=== PATIENT | male | born 1935 | race Caucasian/White ===

== ENCOUNTER 2018-05-10 09:56 | Emergency (ER) | payer MEDICARE, BC ==
[2018-05-10 10:28] LABS: Bilirubin Negative (Negative); Blood, Urine Negative (Negative); Clarity CLEAR (Clear); Glucose, Urine (Dipstick) Negative (Negative); Leukocyte Negative (Negative); Nitrite Negative (Negative); Protein, Urine (Dipstick) Negative (Neg-Trace); Specific Gravity, Urine 1.024 (1.002-1.036)
[2018-05-10 10:42] LABS: #Eosinphils 0.2 thou/uL (0.0-0.7); #Lymphocytes 1.3 thou/uL (1.20-3.40); #Monocytes 0.6 thou/uL (0.11-0.59); #Neutrophils 5.3 thou/uL (1.40-6.50); %Basophils 0.4 % (0.0-1.0); %Eosinophils 2.8 % (0.0-10.0); %Lymphocytes 17.3 % (21.0-51.0); %Monocytes 8.3 % (0.0-10.0); %Neutrophils 71.2 % (42.0-75.0); Hemoglobin 13.1 g/dL (14.0-18.0); Mean Corpuscular HGB CONC 33.6 g/dL (32.0-36.0); Mean Corpuscular Hemoglobin 34.8 pg (27.0-31.0); Mean Platelet Volume 6.8 fL (7.4-10.4); Platelet Count 230 thou/uL (130-400); RBC Distribution Width 12.3 % (11.5-14.5); Red Blood Cell (RBC) Count 3.78 mill/uL (4.70-6.10); White Blood Cell (WBC) Count 7.5 thou/uL (4.8-10.8)
[2018-05-10] MEDS ORDERED: Morphine 4 MG/ML VIAL ONE (10:56)
[2018-05-10] MEDS ORDERED: Ondansetron ODT 8 MG TAB ONE (10:57)
[2018-05-10] MEDS ORDERED: Ondansetron PF 4 MG/2 ML Vial ONE (10:57)
[2018-05-10 11:07] LABS: ALT (SGPT) 11 U/L (8-55); AST (SGOT) 17 U/L (5-34); Albumin 4.1 g/dL (3.4-4.8); Alkaline Phosphatase 75 U/L (40-150); Anion Gap 12 mmol/L (10-20); BUN (Urea Nitrogen) 31 mg/dL (8.4-25.7); Bilirubin, Total 1.2 mg/dL (0.2-1.2); Calc. Creatinine Clearance 0 mL/min (70-130); Calcium 9.6 mg/dL (7.8-10.44); Carbon Dioxide 25 mmol/L (23-31); Chloride 105 mmol/L (98-107); Estimated GFR-MDRD 55; Globulin 2.3 g/dL (2.4-3.5); Glucose 136 mg/dL (83-110); Lipase 12 U/L (8-78); Potassium 4.2 mmol/L (3.5-5.1); Protein, Total 6.4 g/dL (5.8-8.1); Sodium 138 mmol/L (136-145)
--- NOTE | 2018-05-10 12:36 | CT ---
CT ABDOMEN WITH CONTRAST: CT PELVIS WITH CONTRAST: HISTORY: Right lower quadrant pain. COMPARISON: None. FINDINGS: ABDOMEN: Dependent atelectatic changes. Heart size is normal. No significant pericardial fluid. T here are coronary calcifications. The descending thoracic aorta and abdominal aorta have an overall normal caliber. No periaortic fat stranding. A 2 x 2.2 cm hypodensity in the liver, with an attenuation coefficient of 18 Hounsfield units, may re present a complex cyst. There are no enhancing lesions in the liver. The spleen, pancreas, and adre nal glands have appropriate attenuation and enhancement. No gastrohepatic, retrocrural, or periportal lymphadenopathy. No mesenteric mass, lymphadenopathy, free air, or free fluid. Symmetric enhancement of the kidneys. Fullness in both renal pelves may represent bilateral parapelv ic cysts; however, there does appear to be a calculus in the proximal right ureter, measuring 5 mm. A component of mild right-sided obstructive uropathy cannot be entirely excluded. Better interrogati on with CT urogram can be performed. Correlate clinically for renal colic. Limited evaluation of the alimentary canal with lack of oral contrast. No evidence of bowel obstruct ion. The ileocecal junction is normal. Scattered fecal material in a nondistended, nondilated colon . Extensive diverticulosis without evidence of diverticulitis. Normal caliber air-filled appendix i s noted. PELVIS: No mass, lymphadenopathy, free air, or free fluid. Unremarkable urinary bladder. There is dextroscoliosis of the lumbar spine. 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 IMPRESSION: 1. Normal caliber appendix. 2. Extensive diverticulosis without evidence of diverticulitis. 3. Bilateral renal pelvic hypodensities, which may represent parapelvic cysts. There does appear to be a component of mild right-sided obstructive uropathy secondary to the 5 mm calculus in the proxim al right ureter. Correlate for right sided renal colic. Correlation made with a lumbar spine MRI [facility] 11/01/2011 does demonstrate bilateral parapelvic cysts. POS: [facility]
== END 2018-05-10 12:29 | disposition home or self-care (01) ==
LOC: ERS 09:56
DX: N20.1 Calculus of ureter (principal); I48.91 Unspecified atrial fibrillation; Z79.891 Long term (current) use of opiate analgesic
CPT/HCPCS: 36415; 74177; 80053; 81003; 83690; 85025; 93005; 96374; 96375; J2270; J2405

== ENCOUNTER 2019-03-26 13:10 | Outpatient (CLI) | payer MEDICARE, BC ==
--- NOTE | 2019-03-26 14:44 | MRI ---
MRI Lumbar Spine Noncontrast: HISTORY: Lumbar radiculopathy. History of prior surgery. COMPARISON: MRI lumbar spine on 11/01/[address] abdomen on 05/10/2018 FINDINGS: Increased T2-weighted signal intensity structures are seen in each renal hilum which were also seen o n prior CT exam and are likely reflective of bilateral parapelvic renal cysts. There is a mildly prominent right retrocrural lymph node measuring 9 mm in short axis dimension. Conus medullaris is normal in morphology and terminates at the L1-2 level. Multilevel degenerative changes are seen throughout the lumbar spine with right convex scoliosis of t he lumbar spine. Vacuum phenomenon is seen within the intervertebral discs at all levels, and there is severe height loss involving the intervertebral discs at all levels. T10-11: There is a broad-based disc osteophyte complex present with a right paracentral disc protrusi on. This does narrow the ventral subarachnoid space with encroachment on the right anterolateral aspect of the spinal cord. Facet hypertrophic changes are noted at this level. Axial imaging was not obtained at this level, but there is suggestion of severe bilateral neural foraminal narrowing. T11-12: There is a minimal disc osteophyte complex with slight effacement of ventral subarachnoid spa ce. Neural foramina are patent. T12-L1: There is a broad-based disc osteophyte complex which narrows the ventral subarachnoid space a nd encroaches on the anterior aspect of the spinal cord. Mild right-sided neural foraminal narrowing is present. The left neural foramen is patent. L1-2: There is slight retrolisthesis of L1 on L2. Broad-based disc osteophyte complex is present at t his level. Facet hypertrophic changes are noted. Mild central canal narrowing is present. Right neural foramen is patent, but there is mild to moderate left-sided neural foraminal narrowing. L2-3: Severe loss of intervertebral disc height. Broad-based disc osteophyte complex is present with facet hypertrophic changes noted. Facet hypertrophic changes are greater on the left. Right neural foramen is patent, but there is severe left-sided neural foraminal narrowing. There is mass effect on the left lateral aspect of the thecal sac due to facet hypertrophic changes and scoliotic curvature. Mild generalized narrowing central spinal canal is present L3-4: There is severe loss of intervertebral disc height. There is broad-based disc osteophyte comple x and facet hypertrophic changes. Right neural foramen is patent, but there is suggestion of moderate left-sided neural foraminal narrowing. L4-5: There is a broad-based disc osteophyte complex and facet hypertrophic changes. Facet degenerati ve changes are seen at this level. Moderate right and severe left-sided neural foraminal narrowing is present. L5-S1: There is a broad-based disc osteophyte complex and facet hypertrophic changes. The left neural foramen is patent. There is what appears to be dilated nerve root sleeve in the right subarticular zone extending into the right neural foramen. There is severe right-sided neural foraminal narrowing primarily related to disc osteophyte complex and facet hypertrophic changes. Mild mass effect is present on the right lateral aspect of the thecal sac. IMPRESSION: Multilevel degenerative changes throughout the lumbar spine, and the degenerative changes have progre ssed compared to the prior exam. Prominent right convex scoliosis lumbar spine is noted.
== END 2019-03-26 13:11 | disposition home or self-care (01) ==
LOC: TBSIIMAG 13:10
PROVIDERS: ATTEND Anesthesiology Pain Medicine
DX: M47.26 Other spondylosis with radiculopathy, lumbar region (principal); M41.9 Scoliosis, unspecified
CPT/HCPCS: 72148

== ENCOUNTER 2019-04-03 13:42 | Outpatient (CLI) | payer MEDICARE, BC ==
--- NOTE | 2019-04-03 14:43 | RAD ---
EXAM: LUMBAR SPINE THREE VIEWS: 04/03/19 HISTORY: Low back pain, right leg pain. COMPARISON: Lumbar spine MRI, 03/26/19. FINDINGS: Prominent dextroscoliosis. Severe multilevel disc osteophytosis and facet arthrosis, evidence for spo ndylosis. Very mild stable anterolisthesis of L5 on S1 without abnormal translation between flexion a nd extension. Severe bone demineralization. IMPRESSION: Severe bone demineralization with dextroscoliosis and very mild grade I stable anterolisthesis of L5 on S1. POS: [facility]
== END 2019-04-03 13:43 | disposition home or self-care (01) ==
LOC: TBSIIMAG 13:42
PROVIDERS: ATTEND Neurological Surgery
DX: M54.16 Radiculopathy, lumbar region (principal); M41.9 Scoliosis, unspecified; M43.17 Spondylolisthesis, lumbosacral region; M81.0 Age-related osteoporosis without current pathological fracture
CPT/HCPCS: 72100

== ENCOUNTER 2019-12-17 06:56 | Outpatient (CLI) | payer MEDICARE, BC ==
[2019-12-17 13:43] LABS: Hemoglobin 12.2 g/dL (14.0-18.0); Mean Corpuscular HGB CONC 32.7 G/DL (32.0-36.0); Mean Corpuscular Hemoglobin 33.5 PG (27.0-33.0); Mean Corpuscular Volume 102.5 fl (80.0-100.0); Mean Platelet Volume 10.1 fl (7.4-10.4); Platelet Count 224 10x3/uL (130-400); RBC Distribution Width 13.5 % (11.5-14.5); Red Blood Cell (RBC) Count 3.64 10x6/uL (4.40-5.80); White Blood Cell (WBC) Count 7.3 10x3/uL (4.5-11.0)
[2019-12-17 13:49] LABS: Anion Gap 15 mmol/L (10-20); BUN (Urea Nitrogen) 29 mg/dL (8.4-25.7); Calc. Creatinine Clearance 0 mL/min (70-130); Calcium 9.6 mg/dL (7.8-10.44); Carbon Dioxide 25 mmol/L (23-31); Chloride 105 mmol/L (98-107); Estimated GFR-MDRD 65; Glucose 85 mg/dL (83-110); Potassium 5.2 mmol/L (3.5-5.1); Sodium 140 mmol/L (136-145)
[2019-12-17 14:15] LABS: PTT 31.3 sec (22.0-33.0); Prothrombin Time 10.9 sec (9.5-12.1)
[2019-12-18 12:08] LABS: SARS-CoV-2 MS2 Positive; SARS-CoV-2 N Gene Negative; SARS-CoV-2 S Gene Negative; SARS-CoV-2 by NAA Not Detected (NotDetected); SARS-CoV-2 orf1ab Negative
== END 2019-12-17 06:57 | disposition home or self-care (01) ==
LOC: LABBT 06:56
PROVIDERS: ATTEND Neurological Surgery
DX: Z01.812 Encounter for preprocedural laboratory examination (principal); M48.061 Spinal stenosis, lumbar region without neurogenic claudication; Z20.828 Contact with and (suspected) exposure to other viral communicable diseases
CPT/HCPCS: 80048; 85027; 85610; 85730; U0003; 87635

== ENCOUNTER 2019-12-17 12:30 | Inpatient (IN) | payer MEDICARE, BC ==
--- NOTE | 2019-12-19 13:38 | HP ---
REASON FOR HISTORY AND PHYSICAL: Surgery on 12/21/2019. Case #[id number]. HISTORY OF PRESENT ILLNESS: Mr. Stark is an 84-year-old gentleman with a chief complaint of lower back, right leg pain and weakness. He has a right L5 radiculopathy with foot drop. He has tried spinal epidural injections, physical therapy, dry needling, and medications without any lasting relief. He denies bladder or bowel dysfunction. REVIEW OF SYSTEMS: CONSTITUTIONAL: Denies fever or chills. ENT: Denies change in vision or hearing. CARDIAC: Denies chest pain, shortness of breath, or diaphoresis. PULMONARY: Denies shortness of breath, cough, or hemoptysis. GI: Denies abdominal pain, nausea, vomiting, diarrhea, change in stool formation and consistency. : Denies trouble with urination, frequency of urination, or bloody urine. SKIN: Denies skin rash, bruising, bleeding, or skin masses. MUSCULOSKELETAL: As per history of present illness. NEUROLOGIC: As per history of present illness. PSYCHOLOGIC: Denies anxiety, depression, or behavior changes. MEDICAL HISTORY: Arthritis, colonoscopy 2011, eye exam 2013, wellness exam 2011, flu vaccination 2012, serious accidents, cataracts, torn rotator cuff, kidney stones. PAST SURGICAL HISTORY: Knee, back surgery 2011, colonoscopy 2011, cervical, right cataract surgery 2018. HOSPITALIZATIONS: As above surgeries. FAMILY HISTORY: Father , 67 years old, coronary artery disease, high blood pressure, heart disease, heart attack, diagnosed with hypertension. Mother , 78 years old, coronary artery disease, high blood pressure, heart disease, heart attack, hypertension. Siblings, coronary artery disease, high blood pressure, heart disease, heart attack. SOCIAL HISTORY: Nonsmoker. Denies illicit drugs. Occasionally, he drinks alcohol. MEDICATIONS: 1. Astelin 137 mcg spray. 2. Gabapentin 300 mg. 3. Ibuprofen 200 mg. 4. Tizanidine 4 mg. 5. Latanoprost 0.005% solution ophthalmic. 6. Timolol 0.5% ophthalmic solution. 7. Prednisone 10 mg. ALLERGIES: SULFA, PENICILLIN, TAPE, ADHESIVE. PHYSICAL EXAMINATION: VITAL SIGNS: Weight 158 pounds, height 63 inches, BMI 28.09. HEENT: Pupils are equal. Extraocular movements are intact. NECK: Soft, supple. No masses are noted. Range of motion is intact and nonpainful. NEUROLOGIC: Awake, alert, and oriented x3. Attention, fund of knowledge normal. Cranial nerves are grossly intact. Gait and station: Right footdrop. Unable to walk on his right heel. Motor exam: Weakness in the anterior tib and EHL on the right. Sensory exam: Decreased L5 sensation on the right. Reflex exam: Hypoactive, symmetric. No clonus. IMAGING: MRI of the L-spine: Collapse of the right L5-S1 disk, the pedicle of the L5 sits on the L5 nerve root on top of the sacrum. Small cystic area noted near the same nerve root. L-spine x-ray: Flexion, extension stable. ASSESSMENT: 1. Lumbar radiculopathy. 2. Foraminal stenosis of the lumbar region. PLAN: 1. Laminectomy and TLIF at L5-S1. 2. Preop labs; CBC, PT, PTT, INR. 3. Clearance. INFORMED CONSENT: We discussed the indications, risks, benefits, alternatives, and expected results from surgery. The risks discussed included, but were not limited to, bleeding, infection, CSF leak, nerve damage, weakness, incontinence, cauda equina injury, arachnoiditis, paralysis, ventilator dependency, wheelchair dependency, loss of vision, hardware misplacement, cardiopulmonary complications of anesthesia or . Long-term complications discussed included, but were not limited to degeneration of surrounding disk and further surgery. He understands the risks and is willing to proceed. Job ID: [id number]
[2019-12-20 13:06] VITALS: BMI 24.2
[2019-12-21] MEDS ORDERED: Clindamycin/D5W 900 mg/50 ml Premix Bag ONE (06:07)
[2019-12-21] MEDS ORDERED: Levofloxacin 500 mg/D5W 100 ml Premix Bag ONE (06:08)
[2019-12-21] MEDS ORDERED: EPINEPHrine 1 MG/ML AMP ONE (06:13)
[2019-12-21] MEDS ORDERED: Thrombin 5000 UNITS/5 ML VIAL ONE (06:13)
[2019-12-21] MEDS ORDERED: Bupivacaine PF 0.5% 30 ML VIAL ONE (06:13)
[2019-12-21] MEDS ORDERED: Fentanyl 250 MCG/5 ML VIAL ONE (06:22)
[2019-12-21] MEDS ORDERED: PHENYLEPHRINE-NS 100 MCG/ML 10 ML SYRINGE ONE (08:13)
[2019-12-21] MEDS ORDERED: Phenylephrine 10 MG/ML VIAL ONE (08:14)
[2019-12-21] MEDS ORDERED: Rocuronium Bromide 10 MG/ML (10ML VIAL) ONE (10:15)
[2019-12-21] MEDS ORDERED: Dexamethasone 20 MG/5 ML VIAL ONE (10:15)
[2019-12-21] MEDS ORDERED: PROPOFOL 200 MG/20 ML VIAL ONE (10:15)
[2019-12-21] MEDS ORDERED: Metoclopramide HCl 10 MG/2 ML VIAL ONE (10:15)
[2019-12-21] MEDS ORDERED: EPHEDRINE 25 MG/5 ML SYRINGE ONE (10:15)
[2019-12-21] MEDS ORDERED: Lidocaine 1% PF 5 ML VIAL ONE (10:15)
[2019-12-21] MEDS ORDERED: Glycopyrrolate 0.2 MG/ML 5 ML SYRINGE ONE (10:15)
[2019-12-21] MEDS ORDERED: Ondansetron PF 4 MG/2 ML Vial ONE (10:15)
[2019-12-21] MEDS ORDERED: Promethazine HCl 25 MG/ML VIAL SLOW IVP PRN (12:16)
[2019-12-21] MEDS ORDERED: Promethazine HCl 25 MG/ML VIAL IM PRN ×2 (12:16→12:41)
[2019-12-21] MEDS ORDERED: Ondansetron HCl/PF 4 MG/2 ML Vial IVP PRN (12:16)
[2019-12-21] MEDS ORDERED: HYDROmorphone 2 MG/ML VIAL SLOW IVP PRN (12:16)
[2019-12-21] MEDS ORDERED: Morphine 2 MG/ML VIAL SLOW IVP PRN (12:41)
[2019-12-21] MEDS ORDERED: Tamsulosin HCl 0.4 MG CAP PO PRN (12:41)
[2019-12-21] MEDS ORDERED: Acetaminophen/Codeine 30-300mg Tablet PO PRN (12:41)
[2019-12-21] MEDS ORDERED: Milk Of Magnesia 30 ML UDCUP PO PRN (12:41)
[2019-12-21] MEDS ORDERED: Acetaminophen 325 MG TAB PO PRN (12:41)
[2019-12-21] MEDS ORDERED: diphenhydrAMINE 50 MG/ML VIAL IVP PRN (12:41)
[2019-12-21] MEDS ORDERED: Promethazine 25 MG TAB PO PRN (12:41)
[2019-12-21] MEDS ORDERED: traMADol HCl 50 MG TAB PO PRN (12:41)
[2019-12-21] MEDS ORDERED: Scopolamine 1.5 mg/72 hour Patch TD PRN (12:41)
[2019-12-21] MEDS ORDERED: Mag-Al 1200 mg/1200 mg/30 ML UDCUP PO PRN (12:41)
[2019-12-21] MEDS ORDERED: tiZANidine HCl 4 MG TAB PO PRN ×2 (12:41→12:44)
[2019-12-21] MEDS ORDERED: Fentanyl 100 MCG/2 ML VIAL ONE ×2 (13:09→13:23)
[2019-12-21] MEDS ORDERED: Tamsulosin HCl 0.4 MG CAP ONE (13:23)
--- NOTE | 2019-12-21 13:51 | OP ---
DATE OF PROCEDURE: 12/21/2019 PARATRANSIT OPERATOR: Vikas Peace PA-C PREOPERATIVE INDICATION: Treat pain and prevent neurological deterioration. 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 PROCEDURES PERFORMED: 1. Decompressive laminectomy with foraminotomy, right L5-S1. 2. Microsurgical resection of intraspinal lesion (synovial cyst), extradural, nonneoplastic. 3. Transforaminal lumbar interbody arthrodesis, L5-S1. 4. Placement of intervertebral biomechanical device L5-S1. 5. Pedicle screw and christel instrumentation, L5-S1. 6. Local morselized allograft. PREOPERATIVE MEDICATIONS: Levaquin 500 mg IV, clindamycin 900 mg IV. DRAIN: Zero. DRAIN TYPE: None. DESCRIPTION OF PROCEDURE: The patient was brought to the operating room. General endotracheal anesthesia was induced. The patient was carefully positioned on the James frame with the appropriate padding for the chest and hips. Due to shoulder pathology, the arms could not be raised and they were taped to the patient's side. Lateral fluoro radiograph was used to plan our incision. This incorporated his previous L4-L5 incision and extended superiorly and inferiorly. The lumbar skin was sterilely prepped and draped. We opened a midline incision with a 10-blade knife and controlled bleeding with bipolar and monopolar cautery. We used monopolar cautery to dissect through subcutaneous tissues to the thoracodorsal fascia. We incised the fascia in the midline and reflected paraspinal muscles off the spinous process and lamina of L5 and S1. Lateral fluoro radiograph confirmed the levels upon which we were operating. We then used an Adson rongeur to remove the spinous process of L5 and the superior portion of the sacrum. Kerrison rongeurs were used to fashion a laminectomy. As we encountered the large cystic structure in the right side of the epidural space, brought the operative microscope in the field. Under microscopic magnification using microsurgical techniques, we carefully dissected our way around this cystic structure. We removed in a piecemeal fashion and there was a typical synovial cyst with some remnants of the injection material. Once the cyst was removed, the L5 nerve root was more visible. We followed it into the foramina, found it compressed between the L5 pedicle and the S1 pedicle and outside the spinal canal. This made placement of the interbody device necessary to create vertical space around the nerve root. Our foraminotomy was wide enough to access the interspace under the axilla of the L5 nerve root. We incised the interspace and removed disk contents using curettes and rongeurs. A rectangular-shaped bone rasp was used to measure the height of the interspace to 10 mm. A 10 mm PEEK intervertebral graft was brought into the field. Laminectomy bone was cleaned of soft tissue attachments, morcellized and added to demineralized bone matrix as our fusion substrate. The substrate was packed in the center of the graft. The graft was advanced into the interspace under radiographic guidance to the appropriate depth. This created significant amount of vertical space around the L5 nerve root on the right side. We turned our attention to pedicle screw instrumentation. Using bony anatomic landmarks, palpation of the medial portion of the pedicles, and a lateral fluoro radiograph as our guide, we chose entry points for pedicle screws at L5 and S1 bilaterally. We drilled out our entry points, used a bone awl to create our trajectory and then used a threaded tap to tap each of the trajectories. These were completely encased in bone. 6.5 mm diameter screws were placed in the pedicles at L5 and S1 bilaterally. We irrigated with bacitracin irrigation. We decorticated the transverse process of L5 and the sacral ala on both sides. We generated a 360-degree image set with isocentric C-arm confirming adequate positioning of our instrumentation. We then brought rods into the field. Rods were placed into the screw heads and caps tightened over the rods. Using a torque/counter-torque mechanism, we ensured adequate tightness. We used gentle compression across the interspace to keep the interbody graft in place before final tightening of our caps. With a Fermin ball probe, we made sure that both the left and the right L5 foramen was still open. Over the decorticated transverse processes and sacral ala, we left demineralized bone matrix and morselized autograft as our posterior lateral fusion substrate. This was done after copious amounts of vancomycin irrigation. Vancomycin powder was used to treat the wound. We closed the wound in anatomical layers. We applied a sterile dressing. This was a clean case, no contamination. Job ID: [id number]
[2019-12-21] MEDS: Clindamycin/D5W 900 MG in Premix Bag 1 BAG IVPB SCH ×2 (14:34→21:17)
[2019-12-21] MEDS: Gabapentin 300 MG CAP PO SCH ×2 (14:34→20:27)
[2019-12-21] MEDS: Sodium Chloride 0.9% 1,000 ML IV SCH (18:12)
[2019-12-21] MEDS ORDERED: Latanoprost 0.005% Ophth Soln 2.5 ml Bottle EA EYE SCH (21:00)
[2019-12-21] MEDS ORDERED: Loratadine 10 MG TAB PO SCH (21:00)
[2019-12-21] MEDS ORDERED: Timolol 0.25% Ophth Soln 5 ml Bottle EA EYE SCH (21:00)
[2019-12-22] MEDS: Sodium Chloride 0.9% 1,000 ML IV SCH (04:00)
[2019-12-22] MEDS: Gabapentin 300 MG CAP PO SCH (08:26)
[2019-12-22] MEDS ORDERED: FLU VACC QS2020-21(65YR UP)/PF 240 MCG/0.7 ML SYRINGE IM ONE (09:00)
[2019-12-22] MEDS ORDERED: Non-Formulary Item 1 EACH (Esomeprazole Magnesium [Nexium] 20 MG Capsule.Dr) PO SCH (09:00)
[2019-12-22 11:20] VITALS: BP 134/70; TEMP 98.9
--- NOTE | 2019-12-24 07:22 | DIS ---
DATE OF ADMISSION: 12/21/2019 DATE OF DISCHARGE: 12/22/2019 DISCHARGE DIAGNOSES: Lumbar stenosis, lumbar radiculopathy. PROCEDURE: Decompressive laminectomy with foraminotomy, right L5-S1, synovial cyst resection and a L5-S1 TLIF. DISCHARGE SUMMARY: The patient is an 84-year-old male recently evaluated in the office by Dr. Erazo for progressive back and right leg pain. He was found to have significant stenosis around the exiting right L5 nerve root due to collapse of the foramina and synovial cyst formation. He underwent laminectomy and foraminotomy with TLIF at L5-S1 on 12/21/2019. Following the surgery, he was transitioned to the Med/Surg floor, where his pain has been well controlled with p.o. medications. He is tolerating regular diet, and he is voiding appropriately. He walked in the department with Physical Therapy. We will plan to dismiss the patient to home. I have discussed home care precautions and will follow up with the patient in [address] Erazo. Job ID: [id number]
== END 2019-12-22 11:56 | disposition home or self-care (01) | DRG 455 ==
LOC: SURG A 12-21 05:47
PROVIDERS: ADMIT Neurological Surgery; ATTEND Neurological Surgery
PROC: 0SG30AJ Fusion of Lumbosacral Joint with Interbody Fusion Device, Posterior Approach, Anterior Column, Open Approach (ICD-10-PCS; principal; 2019-12-21)
PROC: 0SG3071 Fusion of Lumbosacral Joint with Autologous Tissue Substitute, Posterior Approach, Posterior Column, Open Approach (ICD-10-PCS; 2019-12-21)
PROC: 0SB20ZZ Excision of Lumbar Vertebral Disc, Open Approach (ICD-10-PCS; 2019-12-21)
PROC: 01NB0ZZ Release Lumbar Nerve, Open Approach (ICD-10-PCS; 2019-12-21)
PROC: 01NR0ZZ Release Sacral Nerve, Open Approach (ICD-10-PCS; 2019-12-21)
PROC: 3E02340 Introduction of Influenza Vaccine into Muscle, Percutaneous Approach (ICD-10-PCS; 2019-12-22)
DX: M48.061 Spinal stenosis, lumbar region without neurogenic claudication (principal); M54.16 Radiculopathy, lumbar region; M19.90 Unspecified osteoarthritis, unspecified site; I10 Essential (primary) hypertension; I48.0 Paroxysmal atrial fibrillation; I87.2 Venous insufficiency (chronic) (peripheral); M71.38 Other bursal cyst, other site; Z79.899 Other long term (current) drug therapy; Z79.52 Long term (current) use of systemic steroids; Z88.0 Allergy status to penicillin; Z88.2 Allergy status to sulfonamides; Z91.048 Other nonmedicinal substance allergy status; Z98.41 Cataract extraction status, right eye; Z79.01 Long term (current) use of anticoagulants; Z23 Encounter for immunization
CPT/HCPCS: 76000; 90471; 90662; C1713; C1768; G0008; J0171; J1100; J1956; J2370; J2405; J2704; J2765; J3010; J3370; J3490; S0020

== ENCOUNTER 2020-02-22 12:56 | Outpatient (CLI) | payer MEDICARE, BC ==
--- NOTE | 2020-02-22 13:57 | RAD ---
LUMBAR SPINE 2 VIEWS: HISTORY: Lumbar radiculopathy. FINDINGS: Severe scoliotic deformity of the thoracolumbar vertebral column. Status post laminectomy with poste rior fusion changes at L5-S1. Bone demineralization. Extensive disk-osteophytosis and facet arthros is. IMPRESSION: Severe scoliosis. Postoperative laminectomy with posterior fusion and pedicle screw placement and in tradiskal prosthesis at L5-S1. POS: [facility]
== END 2020-02-22 12:57 | disposition home or self-care (01) ==
LOC: TBSIIMAG 12:56
PROVIDERS: ATTEND Physician Assistant Medical
DX: M48.061 Spinal stenosis, lumbar region without neurogenic claudication (principal); M54.16 Radiculopathy, lumbar region; M41.9 Scoliosis, unspecified; Z98.1 Arthrodesis status; Z98.890 Other specified postprocedural states
CPT/HCPCS: 72100

== ENCOUNTER 2020-10-14 | Emergency (ER) | payer MEDICARE, BC | END 2020-10-14 15:11 | disposition home or self-care (01) ==

== ENCOUNTER 2022-03-18 12:36 | Outpatient (CLI) | payer MEDICARE, BC | END 2022-03-18 12:37 | disposition home or self-care (01) | LOC: CT 12:36 | PROVIDERS: ATTEND Family Medicine | DX: I48.91 Unspecified atrial fibrillation (principal); R53.1 Weakness; Z79.899 Other long term (current) drug therapy | CPT/HCPCS: 36415; 70450; 80053; 82306; 83735; 85025 ==

== ENCOUNTER 2022-10-08 13:58 | Inpatient (IN) | payer MEDICARE, BC ==
[2022-10-08 14:39] LABS: #Eosinphils 0.2 thou/uL (0.0-0.7); #Monocytes 0.9 thou/uL (0.11-0.59); #Neutrophils 6.4 thou/uL (1.40-6.50); %Basophils 0.2 % (0.0-1.0); %Eosinophils 1.7 % (0.0-10.0); %Lymphocytes 15.3 % (21.0-51.0); %Neutrophils 72.1 % (42.0-75.0); Hematocrit 38.1 % (42.0-52.0); Hemoglobin 12.6 g/dL (14.0-18.0); Mean Corpuscular HGB CONC 33.1 g/dL (32.0-36.0); Mean Corpuscular Hemoglobin 34.8 pg (27.0-31.0); Mean Corpuscular Volume 105.2 fl (78.0-98.0); Mean Platelet Volume 9.8 fL (7.4-10.4); Platelet Count 187 10x3/uL (130-400); Red Blood Cell (RBC) Count 3.62 mill/uL (4.70-6.10); White Blood Cell (WBC) Count 8.8 10x3/uL (4.8-10.8)
[2022-10-08 15:06] LABS: ALT (SGPT) 13 U/L (8-55); AST (SGOT) 15 U/L (5-34); Albumin 3.9 g/dL (3.4-4.8); Alkaline Phosphatase 58 U/L (40-110); Anion Gap 11 mmol/L (10-20); BUN (Urea Nitrogen) 30 mg/dL (8.4-25.7); Bilirubin, Total 1.4 mg/dL (0.2-1.2); Calc. Creatinine Clearance 0 mL/min (70-130); Calcium 9.5 mg/dL (7.8-10.44); Carbon Dioxide 25 mmol/L (23-31); Chloride 107 mmol/L (98-107); Estimated GFR 60; Globulin 2.5 g/dL (2.4-3.5); Glucose 122 mg/dL (83-110); Potassium 4.3 mmol/L (3.5-5.1); Protein, Total 6.4 g/dL (5.8-8.1); Sodium 139 mmol/L (136-145)
[2022-10-08 16:02] LABS: INR-International Normal Ratio 1.3; PTT 35.7 sec (22.9-36.1); Prothrombin Time 16.8 sec (12.0-14.7)
[2022-10-08] MEDS ORDERED: dilTIAZem 25 MG/5 ML VIAL ONE (16:20)
[2022-10-08] MEDS ORDERED: hydrALAZINE 20 MG/ML VIAL SLOW IVP PRN (18:01)
[2022-10-08] MEDS ORDERED: Ondansetron PF 4 MG/2 ML Vial IVP PRN (18:01)
[2022-10-08] MEDS ORDERED: Ipratropium/Albuterol 3 ML NEB NEB PRN (18:01)
[2022-10-08] MEDS ORDERED: Morphine 2 MG/ML VIAL SLOW IVP PRN (18:01)
[2022-10-08] MEDS ORDERED: Acetaminophen 500 MG TAB PO SCH (18:15)
[2022-10-08] MEDS ORDERED: Acetaminophen 500 MG TAB ONE (18:23)
[2022-10-08] MEDS: Sodium Chloride 0.9% 1,000 ML IV SCH (18:34)
[2022-10-08 18:48] VITALS: BMI 24.8
[2022-10-08] MEDS ORDERED: traMADol HCl 50 MG TAB PO PRN (19:34)
[2022-10-08] MEDS ORDERED: Cyclobenzaprine 10 MG TAB PO PRN (19:35)
[2022-10-08] MEDS ORDERED: Amiodarone 150 MG, Admixture Fee 1 EACH in Dextrose 5% in Water 100 ML IVPB SCH ×2 (19:45→20:45)
[2022-10-08] MEDS ORDERED: Digoxin 0.5 MG/2 ML AMP SLOW IVP SCH (19:45)
[2022-10-08] MEDS ORDERED: Amiodarone 450 MG in Dextrose 5% in Water 250 ML IVPB SCH ×2 (19:45)
[2022-10-09] MEDS: Acetaminophen 500 MG TAB PO SCH ×5 (00:13→23:46)
[2022-10-09] MEDS: traMADol HCl 50 MG TAB PO SCH ×5 (00:13→23:46)
[2022-10-09] MEDS: Famotidine 20 MG TAB PO SCH ×4 (00:13→21:14)
[2022-10-09] MEDS: Sodium Chloride 0.9% 1,000 ML IV SCH (02:50)
[2022-10-09 03:57] LABS: #Eosinphils 0.2 thou/uL (0.0-0.7); %Basophils 0.6 % (0.0-1.0); %Eosinophils 3.2 % (0.0-10.0); %Lymphocytes 23.3 % (21.0-51.0); %Neutrophils 57.5 % (42.0-75.0); Hematocrit 30.3 % (42.0-52.0); Hemoglobin 10.1 g/dL (14.0-18.0); Mean Corpuscular HGB CONC 33.3 g/dL (32.0-36.0); Mean Corpuscular Hemoglobin 34.9 pg (27.0-31.0); Mean Corpuscular Volume 104.8 fl (78.0-98.0); Mean Platelet Volume 9.6 fL (7.4-10.4); Platelet Count 136 10x3/uL (130-400); RBC Distribution Width 13.9 % (11.5-14.5); Red Blood Cell (RBC) Count 2.89 mill/uL (4.70-6.10); White Blood Cell (WBC) Count 6.9 10x3/uL (4.8-10.8)
[2022-10-09 04:10] LABS: INR-International Normal Ratio 1.4; PTT 42.2 sec (22.9-36.1); Prothrombin Time 17.6 sec (12.0-14.7)
[2022-10-09 04:20] LABS: Anion Gap 10 mmol/L (10-20); BUN (Urea Nitrogen) 27 mg/dL (8.4-25.7); Calc. Creatinine Clearance 58 mL/min (70-130); Calcium 8.4 mg/dL (7.8-10.44); Carbon Dioxide 22 mmol/L (23-31); Chloride 110 mmol/L (98-107); Estimated GFR 85; Glucose 106 mg/dL (83-110); Potassium 3.9 mmol/L (3.5-5.1); Sodium 138 mmol/L (136-145)
[2022-10-09 08:28] LABS: Magnesium 1.5 mg/dL (1.6-2.6); Phosphorus 3.3 mg/dL (2.3-4.7)
[2022-10-09] MEDS ORDERED: Magnesium 2 GM/50 ML(in water) 4 GM in Premix Bag 1 BAG IVPB SCH (08:45)
[2022-10-09] MEDS ORDERED: Gabapentin 300 MG CAP PO SCH (21:00)
[2022-10-09] MEDS: Gabapentin 300 MG CAP PO SCH (23:25)
[2022-10-10 04:51] LABS: #Eosinphils 0.2 thou/uL (0.0-0.7); %Basophils 0.5 % (0.0-1.0); %Eosinophils 2.8 % (0.0-10.0); %Lymphocytes 20.1 % (21.0-51.0); %Neutrophils 61.3 % (42.0-75.0); Hemoglobin 10.1 g/dL (14.0-18.0); Mean Corpuscular HGB CONC 32.6 g/dL (32.0-36.0); Mean Corpuscular Hemoglobin 34.1 pg (27.0-31.0); Mean Corpuscular Volume 104.7 fl (78.0-98.0); Mean Platelet Volume 10.1 fL (7.4-10.4); Platelet Count 139 10x3/uL (130-400); RBC Distribution Width 13.9 % (11.5-14.5); Red Blood Cell (RBC) Count 2.96 mill/uL (4.70-6.10); White Blood Cell (WBC) Count 6.5 10x3/uL (4.8-10.8)
[2022-10-10] MEDS: Acetaminophen 500 MG TAB PO SCH ×4 (05:07→23:03)
[2022-10-10] MEDS: traMADol HCl 50 MG TAB PO SCH ×4 (05:08→23:03)
[2022-10-10 05:15] LABS: Anion Gap 9 mmol/L (10-20); BUN (Urea Nitrogen) 18 mg/dL (8.4-25.7); Calc. Creatinine Clearance 61 mL/min (70-130); Calcium 9.2 mg/dL (7.8-10.44); Carbon Dioxide 24 mmol/L (23-31); Chloride 107 mmol/L (98-107); Estimated GFR 86; Glucose 93 mg/dL (83-110); Magnesium 1.8 mg/dL (1.6-2.6); Phosphorus 2.8 mg/dL (2.3-4.7); Sodium 136 mmol/L (136-145)
[2022-10-10] MEDS: Famotidine 20 MG TAB PO SCH ×2 (09:01→20:15)
[2022-10-10] MEDS ORDERED: Metoprolol Tartrate 25 MG TAB PO SCH (11:30)
[2022-10-10] MEDS: Gabapentin 300 MG CAP PO SCH ×2 (20:14→23:04)
[2022-10-10] MEDS: Metoprolol Tartrate 25 MG TAB PO SCH (20:15)
[2022-10-10] MEDS: Apixaban 2.5 MG TAB PO SCH (20:15)
[2022-10-10] MEDS ORDERED: Apixaban 5 MG TAB PO SCH (21:00)
[2022-10-11 04:31] LABS: #Eosinphils 0.1 thou/uL (0.0-0.7); #Monocytes 0.9 thou/uL (0.11-0.59); #Neutrophils 3.6 thou/uL (1.40-6.50); %Basophils 0.5 % (0.0-1.0); %Eosinophils 1.7 % (0.0-10.0); %Lymphocytes 21.5 % (21.0-51.0); %Monocytes 15.6 % (0.0-10.0); %Neutrophils 60.5 % (42.0-75.0); Hematocrit 26.5 % (42.0-52.0); Hemoglobin 8.7 g/dL (14.0-18.0); Mean Corpuscular HGB CONC 32.8 g/dL (32.0-36.0); Mean Corpuscular Hemoglobin 34.9 pg (27.0-31.0); Mean Corpuscular Volume 106.4 fl (78.0-98.0); Mean Platelet Volume 10.1 fL (7.4-10.4); Platelet Count 126 10x3/uL (130-400); RBC Distribution Width 14.2 % (11.5-14.5); Red Blood Cell (RBC) Count 2.49 mill/uL (4.70-6.10); White Blood Cell (WBC) Count 5.9 10x3/uL (4.8-10.8)
[2022-10-11] MEDS: traMADol HCl 50 MG TAB PO SCH ×3 (05:54→18:19)
[2022-10-11] MEDS: Acetaminophen 500 MG TAB PO SCH ×3 (05:54→18:19)
[2022-10-11] MEDS ORDERED: Atorvastatin Calcium 10 MG TAB PO SCH (09:00)
[2022-10-11] MEDS: Metoprolol Tartrate 25 MG TAB PO SCH (09:09)
[2022-10-11] MEDS: Apixaban 2.5 MG TAB PO SCH (09:09)
[2022-10-11] MEDS: Famotidine 20 MG TAB PO SCH (09:09)
[2022-10-11 16:02] VITALS: TEMP 98.4
[2022-10-11 17:58] VITALS: BP 127/63
== END 2022-10-11 20:20 | DRG 536 ==
LOC: ERS 13:58 → ERHOLD 18:01 → CCU 21:55 → 2NO 10-09 16:26
PROVIDERS: ADMIT Surgery; ATTEND Surgery
DX: S32.401A Unspecified fracture of right acetabulum, initial encounter for closed fracture (principal); S32.591A Other specified fracture of right pubis, initial encounter for closed fracture; Z79.01 Long term (current) use of anticoagulants; Z91.048 Other nonmedicinal substance allergy status; Z88.2 Allergy status to sulfonamides; I48.0 Paroxysmal atrial fibrillation; E78.00 Pure hypercholesterolemia, unspecified; Z87.891 Personal history of nicotine dependence; W55.22XA Struck by cow, initial encounter
CPT/HCPCS: 36415; 72170; 72190; 72192; 80048; 80053; 83735; 84100; 85025; 85610; 85730; 93005; 96374; G0390; J0282; J7050; J7070

== ENCOUNTER 2023-01-19 10:30 | Inpatient (IN) | payer MEDICARE, BC ==
[2023-01-18 12:02] VITALS: BMI 25.7
[2023-01-18 12:55] LABS: Hematocrit 40.5 % (38.8-50.0); Hemoglobin 13.3 g/dL (13.5-17.5); Mean Corpuscular HGB CONC 32.8 g/dL (32.0-36.0); Mean Corpuscular Hemoglobin 33.5 pg (27.0-33.0); Mean Platelet Volume 10.2 fl (7.4-10.4); Platelet Count 236 10x3/uL (150-450); RBC Distribution Width 13.7 % (11.5-14.5); Red Blood Cell (RBC) Count 3.97 10x6/uL (4.32-5.72); White Blood Cell (WBC) Count 8.6 10x3/uL (3.5-10.5)
[2023-01-18 13:24] LABS: Prothrombin Time 10.9 sec (9.5-12.1)
[2023-01-18 14:02] LABS: ALT (SGPT) 9 U/L (8-55); AST (SGOT) 14 U/L (5-34); Albumin 4.3 g/dL (3.4-4.8); Alkaline Phosphatase 76 U/L (40-110); Anion Gap 13 mmol/L (10-20); Calc. Creatinine Clearance 45 mL/min (70-130); Calcium 9.6 mg/dL (7.8-10.44); Carbon Dioxide 28 mmol/L (23-31); Chloride 104 mmol/L (98-107); Estimated GFR 62; Globulin 2.3 g/dL (2.4-3.5); Glucose 97 mg/dL (83-110); Potassium 4.7 mmol/L (3.5-5.1); Protein, Total 6.6 g/dL (5.8-8.1); Sodium 140 mmol/L (136-145)
[2023-01-18 14:18] LABS: BUN (Urea Nitrogen) 30 mg/dL (8.4-25.7)
[2023-01-25] MEDS ORDERED: Protamine Sulfate 50 MG/5 ML VIAL ONE (08:32)
[2023-01-25] MEDS ORDERED: Ciprofloxacin Lactate/D5W 400 mg/200 ml Premix ONE (08:32)
[2023-01-25] MEDS ORDERED: Heparin 10,000 UNITS/ 10 ML VIAL ONE (08:32)
[2023-01-25] MEDS ORDERED: Iopamidol 370 76% 100 ML VIAL ONE (09:23)
[2023-01-25] MEDS ORDERED: fentaNYL PF 100 MCG/2 ML SYRINGE ONE (09:42)
[2023-01-25] MEDS ORDERED: Clindamycin/D5W 600 mg/50 ml Premix Bag ONE (09:46)
[2023-01-25] MEDS ORDERED: PHENYLEPHRINE-NS 100 MCG/ML 10 ML SYRINGE ONE (09:53)
[2023-01-25] MEDS ORDERED: Ondansetron PF 4 MG/2 ML Vial ONE (09:53)
[2023-01-25] MEDS ORDERED: Rocuronium Bromide 10 MG/ML (10ML VIAL) ONE (09:53)
[2023-01-25] MEDS ORDERED: Dexamethasone 20 MG/5 ML VIAL ONE (09:53)
[2023-01-25] MEDS ORDERED: Lidocaine 1% PF 5 ML VIAL ONE (09:53)
[2023-01-25] MEDS ORDERED: PROPOFOL 200 MG/20 ML VIAL ONE (09:53)
[2023-01-25] MEDS ORDERED: SUGAMMADEX SODIUM 200 MG/2 ML VIAL ONE (11:38)
[2023-01-25] MEDS ORDERED: fentaNYL 50 mcg/mL 1 mL Vial ONE ×2 (12:01→12:50)
== END 2023-01-25 15:28 | disposition home or self-care (01) | DRG 274 ==
LOC: SURG A 01-25 07:31
PROVIDERS: ADMIT Internal Medicine Cardiovascular Disease; ATTEND Internal Medicine Cardiovascular Disease
PROC: 02L73DK Occlusion of Left Atrial Appendage with Intraluminal Device, Percutaneous Approach (ICD-10-PCS; principal; 2023-01-25)
DX: I48.0 Paroxysmal atrial fibrillation (principal); Z00.6 Encounter for examination for normal comparison and control in clinical research program; Z88.0 Allergy status to penicillin; Z88.2 Allergy status to sulfonamides; Z91.048 Other nonmedicinal substance allergy status
CPT/HCPCS: 33340; 80053; 85027; 85347; 85610; 86850; 86900; 86901; 93306; 93312; C1759; C1760; C1769; C1894; J0744; J1100; J1644; J2405; J2704; J2720; J3010; J3490

== ENCOUNTER 2023-03-03 08:34 | Day surgery (SDC) | payer MEDICARE, BC ==
[2023-03-02 13:07] VITALS: BMI 25.7
[2023-03-03 09:54] LABS: #Eosinphils 0.3 thou/uL (0.0-0.7); #Neutrophils 4.4 thou/uL (1.40-6.50); %Basophils 0.4 % (0.0-1.0); %Eosinophils 3.5 % (0.0-10.0); %Lymphocytes 23.3 % (21.0-51.0); %Monocytes 13.1 % (0.0-10.0); %Neutrophils 59.6 % (42.0-75.0); Hematocrit 40.8 % (42.0-52.0); Hemoglobin 13.7 g/dL (14.0-18.0); Mean Corpuscular HGB CONC 33.6 g/dL (32.0-36.0); Mean Corpuscular Hemoglobin 34.3 pg (27.0-31.0); Mean Corpuscular Volume 102.3 fl (78.0-98.0); Mean Platelet Volume 9.7 fL (7.4-10.4); Platelet Count 208 10x3/uL (130-400); Red Blood Cell (RBC) Count 3.99 mill/uL (4.70-6.10); White Blood Cell (WBC) Count 7.4 10x3/uL (4.8-10.8)
[2023-03-03] MEDS ORDERED: ePHEDrine Sulfate 50 MG/10 ML VIAL ONE (10:10)
[2023-03-03] MEDS ORDERED: Ketamine In 0.9 % NaCl 50 MG/5 ML SYRINGE ONE (10:10)
[2023-03-03] MEDS ORDERED: PROPOFOL 20 ML ONE (10:10)
[2023-03-03 10:38] LABS: Anion Gap 14 mmol/L (10-20); BUN (Urea Nitrogen) 28 mg/dL (8.4-25.7); Calc. Creatinine Clearance 57 mL/min (70-130); Calcium 9.9 mg/dL (7.8-10.44); Carbon Dioxide 25 mmol/L (23-31); Chloride 104 mmol/L (98-107); Estimated GFR 83; Glucose 88 mg/dL (83-110); Sodium 139 mmol/L (136-145)
== END 2023-03-03 11:40 | disposition home or self-care (01) ==
LOC: SDC 08:34
PROVIDERS: ATTEND Internal Medicine Cardiovascular Disease
PROC: B246ZZ4 Ultrasonography of Right and Left Heart, Transesophageal (ICD-10-PCS; principal; 2023-03-03)
DX: I48.0 Paroxysmal atrial fibrillation (principal); I48.4 Atypical atrial flutter; I10 Essential (primary) hypertension; I87.2 Venous insufficiency (chronic) (peripheral); M19.90 Unspecified osteoarthritis, unspecified site; Z86.73 Personal history of transient ischemic attack (TIA), and cerebral infarction without residual deficits; Z98.890 Other specified postprocedural states; Z98.49 Cataract extraction status, unspecified eye; Z87.891 Personal history of nicotine dependence; Z79.01 Long term (current) use of anticoagulants; Z79.899 Other long term (current) drug therapy
CPT/HCPCS: 80048; 85025; 93312; J2704; J3490

== ENCOUNTER 2023-08-12 10:54 | Outpatient (CLI) | payer MEDICARE, BC | END 2023-08-12 10:55 | disposition home or self-care (01) | LOC: BICCT 10:54 | PROVIDERS: ATTEND Orthopaedic Surgery | DX: M17.11 Unilateral primary osteoarthritis, right knee (principal); R93.7 Abnormal findings on diagnostic imaging of other parts of musculoskeletal system ==

== ENCOUNTER 2023-08-17 10:09 | Outpatient (CLI) | payer MEDICARE, BC ==
[2023-08-17 11:16] LABS: #Basophils 0.05 10x3/uL (0.0-0.2); #Eosinphils 0.38 10x3/uL (0.0-0.5); #Monocytes 0.94 10x3/uL (0.0-1.1); #Neutrophils 3.99 10x3/uL (1.5-8.4); %Basophils 0.7 % (0.0-2.0); %Eosinophils 5.2 % (0.0-6.0); %Lymphocytes 26.1 % (18.0-47.0); %Monocytes 12.9 % (0.0-10.0); Hematocrit 38.6 % (38.8-50.0); Hemoglobin 13.2 g/dL (13.5-17.5); Mean Corpuscular HGB CONC 34.2 g/dL (32.0-36.0); Mean Corpuscular Hemoglobin 34.4 pg (27.0-33.0); Mean Corpuscular Volume 100.5 fL (81.2-95.1); Mean Platelet Volume 10.1 fL (7.4-10.4); Platelet Count 217 10x3/uL (150-450); RBC Distribution Width 14.4 % (11.5-14.5); Red Blood Cell (RBC) Count 3.84 10x6/uL (4.32-5.72); White Blood Cell (WBC) Count 7.3 10x3/uL (3.5-10.5)
[2023-08-17 11:54] LABS: Anion Gap 15 mmol/L (10-20); BUN (Urea Nitrogen) 31 mg/dL (8.4-25.7); Calc. Creatinine Clearance 0 mL/min (70-130); Calcium 9.9 mg/dL (7.8-10.44); Carbon Dioxide 27 mmol/L (23-31); Chloride 103 mmol/L (98-107); Estimated GFR 60; Glucose 90 mg/dL (83-110); Potassium 4.5 mmol/L (3.5-5.1); Sodium 140 mmol/L (136-145)
[2023-08-17 12:03] LABS: Bilirubin Neg (Negative); Blood, Urine Negative (Negative); Clarity Clear (Clear); Glucose, Urine (Dipstick) Normal (Negative); Ketone, Urine Negative (Negative); Leukocyte Negative (Negative); Nitrite Negative (Negative); Protein, Urine (Dipstick) Negative (Neg-Trace); Specific Gravity, Urine 1.015 (1.005-1.030)
== END 2023-08-17 10:10 | disposition home or self-care (01) ==
LOC: LABBT 10:09
PROVIDERS: ATTEND Orthopaedic Surgery
DX: Z01.818 Encounter for other preprocedural examination (principal); M17.11 Unilateral primary osteoarthritis, right knee
CPT/HCPCS: 71046; 80048; 81003; 85025; 85610; 87081

== ENCOUNTER 2023-08-22 06:52 | Observation (INO) | payer MEDICARE, BC ==
[2023-08-17 10:40] VITALS: BMI 25.7
[2023-08-22] MEDS ORDERED: EPINEPHrine 1 MG/ML VIAL ONE (07:03)
[2023-08-22] MEDS ORDERED: Bupivacaine PF 0.5% 30 ML VIAL ONE (07:03)
[2023-08-22] MEDS ORDERED: fentaNYL 50 mcg/mL 1 mL Vial ONE ×3 (07:03→10:17)
[2023-08-22] MEDS ORDERED: Bupivacaine 0.25% HCL 30 ML VIAL ONE (07:39)
[2023-08-22] MEDS ORDERED: Tranexamic Acid 1,000 MG/10 ML VIAL ONE ×2 (07:46→11:13)
[2023-08-22] MEDS ORDERED: Vancomycin 1 GM/200 ML (FROZEN) BAG ONE (07:46)
[2023-08-22] MEDS ORDERED: Sodium Chloride 0.9% 100 ML ONE (07:46)
[2023-08-22] MEDS ORDERED: Clindamycin/D5W 600 mg/50 ml Premix Bag ONE (07:50)
[2023-08-22] MEDS ORDERED: fentaNYL 50 mcg/mL 1 mL Vial SLOW IVP PRN (08:25)
[2023-08-22] MEDS ORDERED: traMADol HCl 50 MG TAB PO PRN ×2 (08:30)
[2023-08-22] MEDS ORDERED: HYDROcodone/Acetaminophen 10/325 mg Tablet PO PRN ×2 (08:30)
[2023-08-22] MEDS ORDERED: Promethazine HCl 25 MG/ML VIAL IM PRN ×2 (08:30→11:19)
[2023-08-22] MEDS ORDERED: Ondansetron PF 4 MG/2 ML Vial IVP PRN ×2 (08:30→11:19)
[2023-08-22] MEDS ORDERED: Zolpidem Tartrate 5 MG TAB PO PRN ×2 (08:30→11:19)
[2023-08-22] MEDS ORDERED: Ropivacaine 0.2% 550 ML 550 ML NERVE BLCK SCH (08:30)
[2023-08-22] MEDS ORDERED: Ondansetron PF 4 MG/2 ML Vial ONE (08:49)
[2023-08-22] MEDS ORDERED: PROPOFOL 20 ML ONE (08:49)
[2023-08-22] MEDS ORDERED: Dexamethasone 20 MG/5 ML VIAL ONE (08:49)
[2023-08-22] MEDS ORDERED: Lidocaine 1% PF 5 ML VIAL ONE (08:49)
[2023-08-22] MEDS ORDERED: PHENYLEPHRINE-NS 100 MCG/ML 10 ML SYRINGE ONE ×2 (09:25→10:12)
[2023-08-22] MEDS ORDERED: ePHEDrine Sulfate 50 MG/10 ML VIAL ONE (09:35)
[2023-08-22] MEDS ORDERED: Glycopyrrolate 0.2 MG/ML 5 ML SYRINGE ONE (09:35)
[2023-08-22] MEDS ORDERED: Acetaminophen 325 MG TAB PO PRN (11:19)
[2023-08-22] MEDS ORDERED: diphenhydrAMINE 25 MG CAP PO PRN (11:19)
[2023-08-22] MEDS ORDERED: Furosemide 20 MG TAB PO PRN (11:21)
[2023-08-22] MEDS ORDERED: Tranexamic Acid 1,000 MG in Sodium Chloride 0.9% 100 ML IVPB SCH (11:30)
[2023-08-22] MEDS: Sodium Chloride 0.9% 1,000 ML IV SCH (11:57)
[2023-08-22] MEDS: Ketorolac Tromethamine 30 MG (1 mL) VIAL IVP SCH (11:57)
[2023-08-22] MEDS: Clindamycin/D5W 900 MG in Premix 1 BAG IVPB SCH (17:58)
[2023-08-22] MEDS: Vancomycin (BATCH) 1.5 GM in Premix 1 BAG IVPB SCH (20:53)
[2023-08-22] MEDS: Aspirin 81 mg Enteric Coated Tablet PO SCH (20:54)
[2023-08-22] MEDS: dilTIAZem CD 120 MG CAP PO SCH (20:54)
[2023-08-22] MEDS: Latanoprost 0.005% Ophth Soln 2.5 ml Bottle EA EYE SCH (21:39)
[2023-08-22] MEDS: DorzolamidE/Timolol 2%/0.5% Ophth Soln 10 ml Bottle EA EYE SCH (21:39)
[2023-08-22] MEDS: Gabapentin 300 MG CAP PO SCH (22:51)
[2023-08-23 05:04] VITALS: TEMP 98.2
[2023-08-23 06:14] LABS: Hematocrit 27.4 % (42.0-52.0); Hemoglobin 9.2 g/dL (14.0-18.0); Mean Corpuscular HGB CONC 33.6 g/dL (32.0-36.0); Mean Corpuscular Hemoglobin 33.9 pg (27.0-31.0); Mean Corpuscular Volume 101.1 fL (78.0-98.0); Mean Platelet Volume 10.1 fL (7.4-10.4); Platelet Count 172 10x3/uL (130-400); RBC Distribution Width 14.6 % (11.5-14.5); Red Blood Cell (RBC) Count 2.71 mill/uL (4.70-6.10)
[2023-08-23] MEDS: Atorvastatin Calcium 10 MG TAB PO SCH (08:06)
[2023-08-23] MEDS: Pantoprazole DR 40 MG TAB PO SCH (08:06)
[2023-08-23] MEDS: Senokot S 8.6-50 MG TAB PO SCH (08:06)
[2023-08-23] MEDS: Multivitamin W/ Minerals 1 TAB PO SCH (08:06)
[2023-08-23] MEDS: Ferrous Gluconate 324 MG TAB PO SCH (08:06)
[2023-08-23 08:13] VITALS: BP 119/69
[2023-08-23] MEDS ORDERED: Aspirin 81 mg Enteric Coated Tablet PO SCH (09:00)
[2023-08-23] MEDS: Azelastine 137 MCG/NASAL Spray 30 ML NS SCH (11:01)
== END 2023-08-23 11:30 | disposition home health service (06) ==
LOC: SDC 06:52 → SURG A 12:50
PROVIDERS: ADMIT Orthopaedic Surgery; ATTEND Orthopaedic Surgery
PROC: 0SRC0JZ Replacement of Right Knee Joint with Synthetic Substitute, Open Approach (ICD-10-PCS; principal; 2023-08-22)
DX: M17.11 Unilateral primary osteoarthritis, right knee (principal); I11.9 Hypertensive heart disease without heart failure; Z88.2 Allergy status to sulfonamides; Z88.0 Allergy status to penicillin; Z87.891 Personal history of nicotine dependence; Z91.048 Other nonmedicinal substance allergy status; Z91.011 Allergy to milk products; Z79.899 Other long term (current) drug therapy
CPT/HCPCS: 27447; 64447; 85027; 97110 ×2; 97116 ×2; 97530; A4306; C1713; C1776; C1889; J0171; J0665 ×2; J1100; J1885 ×2; J2405; J2704; J2795; J3010; J3370 ×2; J3490 ×3; J7050; 36415